=== PATIENT | female | born 1975 | race Caucasian/White ===

== ENCOUNTER → 2016-05-17 | Emergency (ER) | payer SELFPAY ==
[~2016-05-17] VITALS: Ht 177.8 cm; Wt 72.6 kg
[2016-05-17 19:14] VITALS: BP 138/71
== END | disposition home or self-care (01) ==
LOC: ER 19:13
DX: M79.1 Myalgia (principal); F31.9 Bipolar disorder, unspecified; Z88.8 Allergy status to other drugs, medicaments and biological substances
CPT/HCPCS: 99283; A4606; Z7610

== ENCOUNTER 2021-04-21 17:56 | Emergency (ER) | payer OTHER ==
[~2021-04-21] VITALS: Ht 162.6 cm; Wt 72.6 kg
--- NOTE | 2021-04-21 17:56 | NUR ---
pt refused vital signs check. aware.
--- NOTE | 2021-04-21 18:00 | NUR ---
SEEN AND EXAMINED BY .
--- NOTE | 2021-04-21 18:08 | NUR ---
Patient discharged to custody in stable condition. Written and verbal after care instructions given. Patient verbalizes understanding of instruction.
== END 2021-04-21 18:09 | disposition home or self-care (01) ==
LOC: ER 18:01
DX: Z04.6 Encounter for general psychiatric examination, requested by authority (principal); Z88.8 Allergy status to other drugs, medicaments and biological substances